=== PATIENT | female | born 1960 | race Hispanic/Latino ===

== ENCOUNTER 2025-01-26 17:12 | Emergency (ER) | payer OTHER, SELFPAY ==
[2025-01-26 17:17] VITALS: BP 143/92
[2025-01-26 17:21] LABS: Glucose - Point of Care 177 mg/dl (70-99)
== END 2025-01-26 19:25 | disposition left against medical advice (07) ==
LOC: EMR 17:12
PROVIDERS: EMERGENCY PHYSICIAN Emergency Medicine
DX: R73.9 Hyperglycemia, unspecified (principal); Z53.21 Procedure and treatment not carried out due to patient leaving prior to being seen by health care provider
CPT/HCPCS: 82962